=== PATIENT | male | born 1995 | race Caucasian/White ===

== ENCOUNTER 2016-05-17 16:47 | Emergency (ER) | payer BC ==
[~2016-05-17] VITALS: Wt 108.0 kg
[~2016-05-17 16:47] MED LIST: CYCL-319 PO; IBUP-1542 PO; OXYC-281 PO
[2016-05-17] MEDS ORDERED: IBUPROFEN 800 MG TAB PO ONE (18:30)
[2016-05-17] MEDS ORDERED: HYDROCODONE/APAP (5/325) TAB PO ONE (18:30)
--- NOTE | 2016-05-17 19:16 | ERD ---
ER Documentation Chief Complaint Date/Time DATE: 05/17/16 TIME: 19:12 Chief Complaint R THUMB INJURY HPI This is a 20-year-old male presents emergency department for right thumb injury. Patient states he was lifting weights when he crushed his right thumb between 2 dumbbells. Patient states thumb began hurting immediately and had small laceration to lateral aspect of right thumb. Bleeding stopped prior to arrival. No drainage. No pus formation or fluctuance. Patient able to move thumb without difficulty. No numbness or tingling. No loss of sensation. ROS All systems reviewed and are negative except as per history of present illness. Medications Home Meds Active Scripts Hydrocodone/Acetaminophen ([place] 5-325 Tablet) 1 Each Tablet, 1 TAB PO Q6H Y for PAIN, #7 TAB Prov:OSCAR HOOKS TEST DESIGNER 05/17/16 Ibuprofen* (Motrin*) 600 Mg Tab, 600 MG PO Q6, #15 TAB Prov:OSCAR HOOKS NP 05/17/16 Cyclobenzaprine Hcl* (Cyclobenzaprine Hcl*) 10 Mg Tablet, 5 MG PO TID, #15 TAB Prov:IAIN HICKMAN TEST DESIGNER 06/26/15 Oxycodone Hcl-Acetaminophen* (Percocet*) 5-325 Mg Tablet, 1 TAB PO Q4H Y for SEVERE PAIN LEVEL 7-10, #10 TAB Prov:IAIN HICKMAN NP 06/26/15 Ibuprofen* (Motrin*) 600 Mg Tab, 600 MG PO Q6H Y for PAIN AND OR ELEVATED TEMP, #30 TAB Prov:IAIN HICKMAN TEST DESIGNER 06/26/15 Reported Medications [none] Unknown Strength No Conflict Check 06/26/15 Allergies Allergies: Coded Allergies: No Known Drug Allergies (Verified Allergy, Unknown, 04/16/14) PMhx/Soc Medical and Surgical Hx: pt denies Medical Hx, pt denies Surgical Hx Hx Alcohol Use: No Hx Substance Use: No Physical Exam Vitals Vital Signs Date Time Temp Pulse Resp B/P Pulse Ox O2 Delivery O2 Flow Rate FiO2 05/17/16 16:50 98.0 75 18 125/59 99 Physical Exam Const: Alert, non-ill appearing Head: Atraumatic Eyes: Normal Conjunctiva ENT: Normal External Ears, Nose and Mouth. Neck: Full range of motion..~ No meningismus. Resp: Clear to auscultation bilaterally Cardio: Regular rate and rhythm, no murmurs Abd: Soft, non tender, non distended. Normal bowel sounds Skin: No petechiae or rashes. small laceration 1cm linear superficial to right thumb. ecchymosis underneath right thumb. Back: No midline or flank tenderness Ext: No cyanosis, or edema Neur: Awake and alert Psych: Normal Mood and Affect Results 24 hrs Current Medications Medications (Trade) Dose Ordered Sig/Shahla Route PRN Reason Start Time Stop Time Status Last Admin Dose Admin Ibuprofen (Motrin) 800 mg ONCE ONCE PO 05/17/16 18:30 05/17/16 18:31 DC 05/17/16 18:16 Acetaminophen/ Hydrocodone Bitart ([place] (5/325)) 1 tab ONCE ONCE PO 05/17/16 18:30 05/17/16 18:31 DC 05/17/16 18:16 Procedures/MDM ED COURSE: The patient was stable throughout ED course. I kept the patient and/or family informed of laboratory and diagnostic imaging results throughout the ED course. Ibuprofen and [place] given while needed Imaging X-ray right thumb Patient: KARMA HURST : 1995 Age: 20 Sex: M MR #: [id number] DOS: 05/17/16 1808 Ordering MD: OSCAR HOOKS NP Location: [facility] Room/Bed: PROCEDURE: XR Thumb. CLINICAL INDICATION: Crush injury TECHNIQUE: Three views of the right thumb are available for review. COMPARISON: None available FINDINGS: The osseous structures, articular spaces, and surrounding soft tissues of the right thumb are normal. No acute fracture or dislocation is seen. No radiopaque foreign body is identified. IMPRESSION: 1. No acute osseous abnormality. MDM: 20-year-old male presents emergency department after right thumb injury. Patient cut his right thumb with 2 dumbbells. Patient remains neurovascularly intact. Thumb was cleansed thoroughly in the ER with normal saline and Betadine. No active bleeding on the ED. Patient can move right thumb without difficulty. There is ecchymosis underneath right thumbnail. X-ray reviewed by radiologist as no acute osseous abnormality. Patient's pain has improved greatly after ibuprofen and [place] given. Remains calm and comfortable throughout ED visit. Low suspicion for acute dislocation or fracture. Patient's diagnosis is finger injury. Patient is appropriate for outpatient management will be given prescription for ibuprofen and [place]. Instructed patient to follow-up with primary care provider in the next 2-3 days for reassessment. Return to ED for any high fever , chest pain, difficulty breathing, shortness breath, wheezing, vomiting, diarrhea, abdominal pain or any new or worsening symptoms. Patient verbalizes understanding. All questions answered at discharge. Departure Diagnosis: Primary Impression: Finger injury Encounter type: initial encounter Laterality: right Qualified Code: S69.91XA - Finger injury, right, initial encounter Condition: Stable OSCAR HOOKS NP May 17, 2016 19:16
--- NOTE | 2016-05-17 19:20 | RADRPT ---
PROCEDURE: XR Thumb. CLINICAL INDICATION: Crush injury TECHNIQUE: Three views of the right thumb are available for review. COMPARISON: None available FINDINGS: The osseous structures, articular spaces, and surrounding soft tissues of the right thumb are normal . No acute fracture or dislocation is seen. No radiopaque foreign body is identified. IMPRESSION: 1. No acute osseous abnormality. RPTAT: QQ .Lonnie Lopez MD, MD Date Time Electronically viewed and signed by .Lonnie Lopez MD, on 05/17/2016 19:19 .d/
[2016-05-17] MEDS ORDERED: IBUP-1542 PO (19:26)
[2016-05-17] MEDS ORDERED: HYDR-906 PO (19:38)
== END 2016-05-17 19:42 | disposition home or self-care (01) ==
LOC: FTE 16:47
DX: S67.01XA Crushing injury of right thumb, initial encounter (principal); W23.1XXA Caught, crushed, jammed, or pinched between stationary objects, initial encounter; Y92.9 Unspecified place or not applicable
CPT/HCPCS: 29130; 73140; Z7502; Z7610

== ENCOUNTER 2017-02-24 23:42 | Emergency (ER) | payer BC ==
[~2017-02-24] VITALS: Ht 172.7 cm; Wt 81.8 kg
[~2017-02-24 23:42] MED LIST changes: +HYDR-906 PO
[2017-02-24 23:45] VITALS: Ht 172.7 cm; Wt 81.8 kg
[2017-02-25] MEDS ORDERED: LIDOCAINE/MYLANTA 40 ML BTL PO STA (02:16)
[2017-02-25] MEDS ORDERED: LORA1TAB PO (02:17)
--- NOTE | 2017-02-25 02:21 | ERD ---
ER Documentation Chief Complaint Chief Complaint took too much of his insomnia medications yesterday Christiano TORRES This is a 21-year-old male who used cocaine last night at [employer] also being drunk. He said today could not sleep he has a history of chronic insomnia so he took 6 or 7 tablets of tryptophan, 200 mg each, 2 hours ago. He says now his concern is overdosed and will harm himself. He has never had any chest pain shortness of breath headache numbness weakness or neurological complaints. No flushing or signs of serotonin syndrome ROS All systems reviewed and are negative except as per history of present illness. Medications Home Meds Active Scripts Lorazepam* (Lorazepam*) 1 Mg Tablet, 1 MG PO Q8H Y for ANXIETY, #10 TAB Prov:CAROLINE YUAN DO 02/25/17 Hydrocodone/Acetaminophen ([place] 5-325 Tablet) 1 Each Tablet, 1 TAB PO Q6H Y for PAIN, #7 TAB Prov:OSCAR HOOKS OFFSHORE WIND OPERATIONS MANAGER 05/17/16 Ibuprofen* (Motrin*) 600 Mg Tab, 600 MG PO Q6, #15 TAB Prov:OSCAR HOOKS [employer] WIND OPERATIONS MANAGER 05/17/16 Cyclobenzaprine Hcl* (Cyclobenzaprine Hcl*) 10 Mg Tablet, 5 MG PO TID, #15 TAB Prov:IAIN HICKMAN [employer]SH[employer] WIND OPERATIONS MANAGER 06/26/15 Oxycodone Hcl-Acetaminophen* (Percocet*) 5-325 Mg Tablet, 1 TAB PO Q4H Y for SEVERE PAIN LEVEL 7-10, #10 TAB Prov:IAIN HICKMAN [employer]SH[employer] WIND OPERATIONS MANAGER 06/26/15 Ibuprofen* (Motrin*) 600 Mg Tab, 600 MG PO Q6H Y for PAIN AND OR ELEVATED TEMP, #30 TAB Prov:IAIN HICKMAN [employer] WIND OPERATIONS MANAGER 06/26/15 Reported Medications [none] Unknown Strength No Conflict Check 06/26/15 Allergies Allergies: Coded Allergies: No Known Drug Allergies (Verified Allergy, Unknown, 04/16/14) PMhx/Soc Medical and Surgical Hx: pt denies Medical Hx, pt denies Surgical Hx Hx Alcohol Use: Yes Hx Substance Use: Yes (MARIJUANA) Hx Tobacco Use: Yes Smoking Status: Current every day smoker FmHx Family History: No coronary disease Physical Exam Vitals Vital Signs Date Time Temp Pulse Resp B/P Pulse Ox O2 Delivery O2 Flow Rate FiO2 02/24/17 23:45 99.1 103 20 138/81 98 Physical Exam Const: Well-developed, well-nourished Head: Atraumatic, normocephalic Eyes: Normal Conjunctiva, PERRLA, EOMI, normal sclera, no nystagmus ENT: Normal External Ears, Nose and Mouth, moist mucus membranes. Neck: Full range of motion. No meningismus, no lymphadenopathy. Resp: Clear to auscultation bilaterally, no wheezing, rhonchi, rales Cardio: Regular rate and rhythm, no murmurs, S1 S2 present Abd: Soft, non tender x 4, non distended. Normal bowel sounds, no guarding or rebound, no pulsitile abdominal masses or bruits Skin: No petechiae or rashes, no ecchymosis , no maculopapular rash Back: No midline or flank tenderness Ext: No cyanosis, or edema, FROM x 4, normal inspection, neurovascularly intact x 4 Neur: Awake and alert, STR 5/5 x 4, sensation intact x 4, no focal findings, cerebellum intact Psych: Normal Mood and Affect Results 24 hrs Current Medications Medications (Trade) Dose Ordered Sig/Shahla Route PRN Reason Start Time Stop Time Status Last Admin Dose Admin Lorazepam (Ativan) 1 mg ONCE ONCE PO 02/25/17 02:30 02/25/17 02:31 Miscellaneous Medication (Gi Cocktail (2)) 40 ml ONCE STAT PO 02/25/17 02:16 02/25/17 02:17 DC Procedures/MDM Patient's dose of tryptophan should not cause any harm. No signs of serotonin syndrome. He took this 2 hours ago. Is complaining of some heartburn I will give him a GI cocktail and some Ativan Departure Diagnosis: Primary Impression: Accidental overdose Encounter type: initial encounter Qualified Code: T50.901A - Accidental overdose, initial encounter Additional Impression: Insomnia Insomnia type: unspecified Qualified Code: G47.00 - Insomnia, unspecified type Condition: Stable Patient Instructions: Overdose, Accidental (Adult) Referrals: TAMIE MCGEE (PCP) CAROLINE YUAN DO Feb 25, 2017 02:20
--- NOTE | 2017-02-25 02:21 | ERD ---
ER Documentation Chief Complaint Chief Complaint took too much of his insomnia medications yesterday Christiano TORRES This is a 21-year-old male who used cocaine last night at [employer] libertarian also being drunk. He said today could not sleep he has a history of chronic insomnia so he took 6 or 7 tablets of tryptophan, 200 mg each, 2 hours ago. He says now his concern is overdosed and will harm himself. He has never had any chest pain shortness of breath headache numbness weakness or neurological complaints. No flushing or signs of serotonin syndrome ROS All systems reviewed and are negative except as per history of present illness. Medications Home Meds Active Scripts Lorazepam* (Lorazepam*) 1 Mg Tablet, 1 MG PO Q8H Y for ANXIETY, #10 TAB Prov:CAROLINE YUAN DO 02/25/17 Hydrocodone/Acetaminophen ([place] 5-325 Tablet) 1 Each Tablet, 1 TAB PO Q6H Y for PAIN, #7 TAB Prov:OSCAR HOOKS WINDSHIELD WIPER REPAIRER 05/17/16 Ibuprofen* (Motrin*) 600 Mg Tab, 600 MG PO Q6, #15 TAB Prov:OSCAR HOOKS WINDSHIELD WIPER REPAIRER 05/17/16 Cyclobenzaprine Hcl* (Cyclobenzaprine Hcl*) 10 Mg Tablet, 5 MG PO TID, #15 TAB Prov:IAIN HICKMAN WINDSHIELD WIPER REPAIRER 06/26/15 Oxycodone Hcl-Acetaminophen* (Percocet*) 5-325 Mg Tablet, 1 TAB PO Q4H Y for SEVERE PAIN LEVEL 7-10, #10 TAB Prov:IAIN HICKMAN WINDSHIELD WIPER REPAIRER 06/26/15 Ibuprofen* (Motrin*) 600 Mg Tab, 600 MG PO Q6H Y for PAIN AND OR ELEVATED TEMP, #30 TAB Prov:IAIN HICKMAN WINDSHIELD WIPER REPAIRER 06/26/15 Reported Medications [none] Unknown Strength No Conflict Check 06/26/15 Allergies Allergies: Coded Allergies: No Known Drug Allergies (Verified Allergy, Unknown, 04/16/14) PMhx/Soc Medical and Surgical Hx: pt denies Medical Hx, pt denies Surgical Hx Hx Alcohol Use: Yes Hx Substance Use: Yes (MARIJUANA) Hx Tobacco Use: Yes Smoking Status: Current every day smoker FmHx Family History: No coronary disease Physical Exam Vitals Vital Signs Date Time Temp Pulse Resp B/P Pulse Ox O2 Delivery O2 Flow Rate FiO2 02/24/17 23:45 99.1 103 20 138/81 98 Physical Exam Const: Well-developed, well-nourished Head: Atraumatic, normocephalic Eyes: Normal Conjunctiva, PERRLA, EOMI, normal sclera, no nystagmus ENT: Normal External Ears, Nose and Mouth, moist mucus membranes. Neck: Full range of motion. No meningismus, no lymphadenopathy. Resp: Clear to auscultation bilaterally, no wheezing, rhonchi, rales Cardio: Regular rate and rhythm, no murmurs, S1 S2 present Abd: Soft, non tender x 4, non distended. Normal bowel sounds, no guarding or rebound, no pulsitile abdominal masses or bruits Skin: No petechiae or rashes, no ecchymosis , no maculopapular rash Back: No midline or flank tenderness Ext: No cyanosis, or edema, FROM x 4, normal inspection, neurovascularly intact x 4 Neur: Awake and alert, STR 5/5 x 4, sensation intact x 4, no focal findings, cerebellum intact Psych: Normal Mood and Affect Results 24 hrs Current Medications Medications (Trade) Dose Ordered Sig/Shahla Route PRN Reason Start Time Stop Time Status Last Admin Dose Admin Lorazepam (Ativan) 1 mg ONCE ONCE PO 02/25/17 02:30 02/25/17 02:31 Miscellaneous Medication (Gi Cocktail (2)) 40 ml ONCE STAT PO 02/25/17 02:16 02/25/17 02:17 DC Procedures/MDM Patient's dose of tryptophan should not cause any harm. No signs of serotonin syndrome. He took this 2 hours ago. Is complaining of some heartburn I will give him a GI cocktail and some Ativan Departure Diagnosis: Primary Impression: Accidental overdose Encounter type: initial encounter Qualified Code: T50.901A - Accidental overdose, initial encounter Additional Impression: Insomnia Insomnia type: unspecified Qualified Code: G47.00 - Insomnia, unspecified type Condition: Stable Patient Instructions: Overdose, Accidental (Adult) Referrals: TAMIE MCGEE (PCP) CAROLINE YUAN DO Feb 25, 2017 02:20
--- NOTE | 2017-02-25 02:21 | ERD ---
ER Documentation Chief Complaint Chief Complaint took too much of his insomnia medications yesterday Christiano TORRES This is a 21-year-old male who used cocaine last night at [employer] party also being drunk. He said today could not sleep he has a history of chronic insomnia so he took 6 or 7 tablets of tryptophan, 200 mg each, 2 hours ago. He says now his concern is overdosed and will harm himself. He has never had any chest pain shortness of breath headache numbness weakness or neurological complaints. No flushing or signs of serotonin syndrome ROS All systems reviewed and are negative except as per history of present illness. Medications Home Meds Active Scripts Lorazepam* (Lorazepam*) 1 Mg Tablet, 1 MG PO Q8H Y for ANXIETY, #10 TAB Prov:CAROLINE YUAN DO 02/25/17 Hydrocodone/Acetaminophen ([place] 5-325 Tablet) 1 Each Tablet, 1 TAB PO Q6H Y for PAIN, #7 TAB Prov:OSCAR HOOKS MEDICAL DATA ANALYST 05/17/16 Ibuprofen* (Motrin*) 600 Mg Tab, 600 MG PO Q6, #15 TAB Prov:OSCAR HOOKS MEDICAL DATA ANALYST 05/17/16 Cyclobenzaprine Hcl* (Cyclobenzaprine Hcl*) 10 Mg Tablet, 5 MG PO TID, #15 TAB Prov:IAIN HICKMAN MEDICAL DATA ANALYST 06/26/15 Oxycodone Hcl-Acetaminophen* (Percocet*) 5-325 Mg Tablet, 1 TAB PO Q4H Y for SEVERE PAIN LEVEL 7-10, #10 TAB Prov:IAIN HICKMAN MEDICAL DATA ANALYST 06/26/15 Ibuprofen* (Motrin*) 600 Mg Tab, 600 MG PO Q6H Y for PAIN AND OR ELEVATED TEMP, #30 TAB Prov:IAIN HICKMAN MEDICAL DATA ANALYST 06/26/15 Reported Medications [none] Unknown Strength No Conflict Check 06/26/15 Allergies Allergies: Coded Allergies: No Known Drug Allergies (Verified Allergy, Unknown, 04/16/14) PMhx/Soc Medical and Surgical Hx: pt denies Medical Hx, pt denies Surgical Hx Hx Alcohol Use: Yes Hx Substance Use: Yes (MARIJUANA) Hx Tobacco Use: Yes Smoking Status: Current every day smoker FmHx Family History: No coronary disease Physical Exam Vitals Vital Signs Date Time Temp Pulse Resp B/P Pulse Ox O2 Delivery O2 Flow Rate FiO2 02/24/17 23:45 99.1 103 20 138/81 98 Physical Exam Const: Well-developed, well-nourished Head: Atraumatic, normocephalic Eyes: Normal Conjunctiva, PERRLA, EOMI, normal sclera, no nystagmus ENT: Normal External Ears, Nose and Mouth, moist mucus membranes. Neck: Full range of motion. No meningismus, no lymphadenopathy. Resp: Clear to auscultation bilaterally, no wheezing, rhonchi, rales Cardio: Regular rate and rhythm, no murmurs, S1 S2 present Abd: Soft, non tender x 4, non distended. Normal bowel sounds, no guarding or rebound, no pulsitile abdominal masses or bruits Skin: No petechiae or rashes, no ecchymosis , no maculopapular rash Back: No midline or flank tenderness Ext: No cyanosis, or edema, FROM x 4, normal inspection, neurovascularly intact x 4 Neur: Awake and alert, STR 5/5 x 4, sensation intact x 4, no focal findings, cerebellum intact Psych: Normal Mood and Affect Results 24 hrs Current Medications Medications (Trade) Dose Ordered Sig/Shahla Route PRN Reason Start Time Stop Time Status Last Admin Dose Admin Lorazepam (Ativan) 1 mg ONCE ONCE PO 02/25/17 02:30 02/25/17 02:31 Miscellaneous Medication (Gi Cocktail (2)) 40 ml ONCE STAT PO 02/25/17 02:16 02/25/17 02:17 DC Procedures/MDM Patient's dose of tryptophan should not cause any harm. No signs of serotonin syndrome. He took this 2 hours ago. Is complaining of some heartburn I will give him a GI cocktail and some Ativan Departure Diagnosis: Primary Impression: Accidental overdose Encounter type: initial encounter Qualified Code: T50.901A - Accidental overdose, initial encounter Additional Impression: Insomnia Insomnia type: unspecified Qualified Code: G47.00 - Insomnia, unspecified type Condition: Stable Patient Instructions: Overdose, Accidental (Adult) Referrals: TAMIE MCGEE (PCP) CAROLINE YUAN DO Feb 25, 2017 02:20
[2017-02-25 02:28] VITALS: BP 138/90; PULSE 94; RESP 20; TEMP 99.1
[2017-02-25] MEDS ORDERED: LORAZEPAM 1 MG TAB PO ONE (02:30)
== END 2017-02-25 02:28 | disposition home or self-care (01) ==
LOC: E/R 23:42
DX: T50.3X1A Poisoning by electrolytic, caloric and water-balance agents, accidental (unintentional), initial encounter (principal); G47.00 Insomnia, unspecified; F17.210 Nicotine dependence, cigarettes, uncomplicated
CPT/HCPCS: Z7502; Z7610; 99283

== ENCOUNTER 2018-08-21 00:11 | Emergency (ER) | payer BC ==
[~2018-08-21] VITALS: Ht 170.2 cm; Wt 100.7 kg
[~2018-08-21 00:11] MED LIST changes: -CYCL-319 PO; +CYCL10TA7 PO; +HYDR-4011 PO; -HYDR-906 PO; +LORA1TAB PO
[2018-08-21 00:19] VITALS: Ht 170.2 cm; Wt 100.7 kg
--- NOTE | 2018-08-21 04:22 | ERD ---
ER Documentation Chief Complaint Chief Complaint Pt reports ST and bilateral ear pain x 1 week and feeling ill HPI This is a 22-year-old male patient who presents to the emergency room with complaint of feeling ill x1 week. Complains of fatigue, increasing and decreasing appetite, feeling dehydrating and drinking copious amounts of water, followed by increased urination.+ Throat, ear pain, headache. No CP, no SOB. No sick contacts, no recent travel, no medical problems.+ Cigarette smoker. ROS All systems reviewed and are negative except as per history of present illness. Medications Home Meds Active Scripts Ibuprofen* (Motrin*) 600 Mg Tab, 600 MG PO Q6, #30 TAB Prov:COLLIN CHAUDHARI AIRPORT REPRESENTATIVE 08/21/18 Lorazepam* (Lorazepam*) 1 Mg Tablet, 1 MG PO Q8H PRN for ANXIETY, #10 TAB Prov:CAROLINE YUAN DO 02/25/17 Hydrocodone/Acetaminophen ([place] 5-325 Tablet) 1 Each Tablet, 1 TAB PO Q6H PRN for PAIN, #7 TAB Prov:OSCAR HOOKS AIRPORT REPRESENTATIVE 05/17/16 Ibuprofen* (Motrin*) 600 Mg Tab, 600 MG PO Q6, #15 TAB Prov:OSCAR HOOKS AIRPORT REPRESENTATIVE 05/17/16 Cyclobenzaprine Hcl* (Cyclobenzaprine Hcl*) 10 Mg Tablet, 5 MG PO TID, #15 TAB Prov:IAIN HICKMAN NP 06/26/15 Oxycodone Hcl-Acetaminophen* (Percocet*) 5-325 Mg Tablet, 1 TAB PO Q4H PRN for SEVERE PAIN LEVEL 7-10, #10 TAB Prov:IAIN HICKMAN NP 06/26/15 Ibuprofen* (Motrin*) 600 Mg Tab, 600 MG PO Q6H PRN for PAIN AND OR ELEVATED TEMP, #30 TAB Prov:IAIN HICKMAN NP 06/26/15 Reported Medications [none] Unknown Strength No Conflict Check 06/26/15 Allergies Allergies: Coded Allergies: No Known Drug Allergies (Verified Allergy, Unknown, 04/16/14) PMhx/Soc Medical and Surgical Hx: pt denies Medical Hx, pt denies Surgical Hx Hx Alcohol Use: Yes Hx Substance Use: Yes (MARIJUANA, COCAINE) Hx Tobacco Use: Yes Smoking Status: Never smoker FmHx Family History: No diabetes, No coronary disease, No other Physical Exam Vitals Vital Signs Date Temp Pulse Resp B/P (MAP) Pulse Ox O2 O2 Flow FiO2 Time Delivery Rate 08/21/18 98.1 82 18 120/72 96 Room Air 07:24 (88) 08/21/18 99.2 96 16 158/86 97 00:19 (110) Physical Exam Const: No acute distress Head: Atraumatic Eyes: Normal Conjunctiva, PERRL ENT: Normal External Ears, TM clear, Nose without exudate, pharynx red, tonsils +1, no lesions, no exudate, no petechiae. Neck: Full range of motion. No meningismus. No lymphadenopathy or thyromegaly Resp: Clear to auscultation bilaterally Cardio: Regular rate and rhythm, no murmurs Abd: Soft, non tender, non distended. Normal bowel sounds, no hepato-or splenomegaly Skin: No petechiae or rashes Back: No midline or flank tenderness Ext: No cyanosis, or edema Neur: Awake and alert Psych: Normal Mood and Affect Result Diagram: 08/21/18 0423 08/21/18 0423 Results 24 hrs Laboratory Tests Test 08/21/18 04:23 White Blood Count 9.9 10^3/ul Red Blood Count 5.07 10^6/ul Hemoglobin 14.7 g/dl Hematocrit 42.7 % Mean Corpuscular Volume 84.2 fl Mean Corpuscular Hemoglobin 29.0 pg Mean Corpuscular Hemoglobin Concent 34.4 g/dl Red Cell Distribution Width 12.7 % Platelet Count 229 10^3/UL Mean Platelet Volume 9.3 fl Immature Granulocytes % 0.600 % Neutrophils % 53.5 % Lymphocytes % 34.7 % Monocytes % 7.0 % Eosinophils % 3.5 % Basophils % 0.7 % Nucleated Red Blood Cells % 0.0 /100WBC Immature Granulocytes # 0.060 10^3/ul Neutrophils # 5.3 10^3/ul Lymphocytes # 3.4 10^3/ul Monocytes # 0.7 10^3/ul Eosinophils # 0.4 10^3/ul Basophils # 0.1 10^3/ul Nucleated Red Blood Cells # 0.0 10^3/ul Sodium Level 143 mmol/L Potassium Level 4.2 mmol/L Chloride Level 104 mmol/L Carbon Dioxide Level 28 mmol/L Anion Gap 11 Blood Urea Nitrogen 14 mg/dl Creatinine 0.96 mg/dl Est Glomerular Filtrat Rate mL/min > 60 mL/min Glucose Level 93 mg/dl Calcium Level 9.9 mg/dl Total Bilirubin 0.5 mg/dl Direct Bilirubin 0.00 mg/dl Indirect Bilirubin 0.5 mg/dl Aspartate Amino Transf (AST/SGOT) 33 IU/L Alanine Aminotransferase (ALT/SGPT) 43 IU/L Alkaline Phosphatase 93 IU/L Total Protein 8.2 g/dl Albumin 4.9 g/dl Globulin 3.30 g/dl Albumin/Globulin Ratio 1.48 Monoscreen Negative Current Medications Medications Dose Sig/Shahla Start Time Status Last (Trade) Ordered Route PRN Stop Time Admin Dose Reason Admin Ibuprofen 600 mg ONCE ONCE 08/21/18 DC 08/21/18 (Motrin) PO 04:30 04:29 08/21/18 04:31 Influenza A/B= neg Rapid strep= neg Procedures/MDM This is a 22-year-old male patient who presents to the emergency room with 1 week of feeling ill. ED COURSE: The patient was stable throughout ED course. I kept the patient and/or family informed of laboratory results throughout the ED course. PROCEDURES: None. MEDICATIONS GIVEN: Ibuprofen Patient tolerated medication well with no adverse reactions. Patient reported improvement in pain. MDM: At the time of discharge, vital signs stable, no respiratory distress. Differential diagnosis include but not limited to: Respiratory infection bacterial/viral/fungal. Influenza, pharyngitis, gastroenteritis, asthma, croup, bronchiolitis, allergies, GERD. Less likely foreign body aspiration, pneumonia . Physical examination and clinical presentation consistent most likely with viral syndrome. During the ED course the patient remained stable. Clinical impression discussed with the patient who agrees with home self- management. The patient is stable to be treated outpatient and will be discharged home. Antibiotics not indicated at this time. If symptoms persist, worsen or new symptoms develop, then patient should return to the ED immediately. Disclaimer: Inadvertent spelling and grammatical errors are likely due to EHR/dictation software use and do not reflect on the overall quality of patient care. Also, please note that the electronic time recorded on this note does not necessarily reflect the actual time of the patient encounter. DISPOSITION: The patient has been discharge home to follow-up with community physician. Departure Diagnosis: Primary Impression: Viral URI Condition: Stable Comments see depart instructions COLLIN CHAUDHARI NP Aug 21, 2018 04:22
[2018-08-21] MEDS ORDERED: IBUPROFEN 600 MG TAB PO ONE (04:30)
[2018-08-21] MEDS ORDERED: IBUP-1542 PO (07:01)
[2018-08-21 07:24] VITALS: BP 120/72; PULSE 82; RESP 18
== END 2018-08-21 07:24 | disposition home or self-care (01) ==
LOC: FTE 00:11
DX: J06.9 Acute upper respiratory infection, unspecified (principal)
CPT/HCPCS: 36415; 80053; 85025; 86308; 87400; 87880; Z7502; Z7610; 99283